=== PATIENT | female | born 1955 | race Caucasian/White ===

== ENCOUNTER 2016-08-16 17:14 | Emergency (ER) | payer OTHER ==
[~2016-08-16] VITALS: Ht 160 cm; Wt 67.0 kg
[~2016-08-16 17:14] MED LIST: ACET500C5 PO; ALBU8.5H3 INH; BACTDS PO; DIPH25CA6 PO; FLUC150T17 PO; IBUP400T22 PO; PRED50TA PO; SULF-182 PO
[2016-08-16 17:19] VITALS: Ht 160 cm; Wt 67.0 kg
[2016-08-16 20:45] LABS: URINE BLOOD (Dip) POC Negative (NEGATIVE)
[2016-08-16] MEDS ORDERED: ATOR10TA65 PO (20:50)
[2016-08-16] MEDS ORDERED: NOVMIX SC (20:50)
[2016-08-16] MEDS ORDERED: OMEP20CA16 PO (20:51)
[2016-08-16] MEDS ORDERED: MTF1000T PO (20:51)
[2016-08-16] MEDS ORDERED: SOD CHLORIDE 0.9% 1,000 ML IV STA (21:14)
[2016-08-16] MEDS ORDERED: morphine 4 MG/ML VIAL IV STA (21:14)
[2016-08-16] MEDS ORDERED: ONDANSETRON 4 MG INJ IV STA (21:14)
[2016-08-16 21:26] LABS: ADD SCAN DIFF NO
[2016-08-16 21:29] LABS: BASOPHILS % 0.4 % (0.0-2.0); EOSINOPHILS # 0.1 10^3/ul (0.0-0.5); EOSINOPHILS % 0.6 % (0.0-7.0); HEMATOCRIT 43.7 % (37.0-47.0); LYMPHOCYTES # 1.2 10^3/ul (0.8-2.9); LYMPHOCYTES % 14.6 % (15.0-51.0); MEAN CORPUSCULAR HEMOGLOBIN 30.4 pg (29.0-33.0); MEAN CORPUSCULAR HGB CONC 34.3 g/dl (32.0-37.0); MEAN CORPUSCULAR VOLUME 88.5 fl (82.0-101.0); MEAN PLATELET VOLUME 10.5 fl (7.4-10.4); MONOCYTE # 0.6 10^3/ul (0.3-0.9); MONOCYTES % 7.6 % (0.0-11.0); NEUTROPHIL # 6.3 10^3/ul (1.6-7.5); NEUTROPHILS % 76.4 % (39.0-77.0); PLATELET COUNT 208 10^3/UL (140-415); RED BLOOD COUNT 4.94 10^6/ul (4.20-5.40); RED CELL DISTRIBUTION WIDTH 12.7 % (11.5-14.5); WHITE BLOOD COUNT 8.3 10^3/ul (4.8-10.8)
[2016-08-16 22:00] LABS: ALBUMIN 4.4 g/dl (3.3-4.9); ALBUMIN/GLOBULIN RATIO 1.29; BILIRUBIN,INDIRECT 0.7 mg/dl (0-1.1); BILIRUBIN,TOTAL 0.7 mg/dl (0.2-1.3); CALCIUM 8.5 mg/dl (8.4-10.2); CREATININE 0.52 mg/dl (0.44-1.00); POTASSIUM 3.6 mmol/L (3.5-5.1); TOTAL PROTEIN 7.8 g/dl (6.1-8.1)
[2016-08-16] MEDS ORDERED: IOHEXOL 300MG/ML 150 ML BTL ONE (22:57)
[2016-08-16] MEDS ORDERED: SOD CHLORIDE 0.9% 100 ML ONE (22:57)
[2016-08-16 23:42] VITALS: BP 126/66; PULSE 97; RESP 18; TEMP 99.4
--- NOTE | 2016-08-17 00:03 | ERD ---
ER Documentation Chief Complaint Date/Time DATE: 08/16/16 TIME: 21:03 Chief Complaint abd pain with vomiting /diarrhea since last night HPI 61-year-old female with history of hyperlipidemia and diabetes mellitus type 2 presents the ED complaining of a one-week history of worsening, moderate to severe, generalized, nonradiating crampy abdominal pain with nausea, several episodes of nonbloody, nonbilious emesis and one episode of nonbloody, non- mucoid diarrhea. No hematemesis, hematochezia or melanotic stools. Denies recent travel, spelled food exposure or ill contacts. No dysuria, polyuria, hematuria or flank pain. No chest pain or palpitations. No shortness of breath or cough. Complaining of mild, crampy pain to both upper and lower extremities which she has had intermittently for several months. No skin changes or rash. Denies headache or neck pain. No visual changes, focal weakness or numbness. No fevers or chills. ROS All systems reviewed and are negative except as per history of present illness. Medications Home Meds Active Scripts Pantoprazole* (Protonix*) 40 Mg Tablet., 40 MG PO DAILY, #20 TAB Prov:BEST CURRAN MD 08/17/16 Tramadol HCl (Tramadol HCl) 50 Mg Tablet, 50 MG PO Q6 Y for PAIN, #12 TAB Prov:BEST CURRAN MD 08/17/16 Reported Medications Metformin* (Glucophage*) 1,000 Mg Tablet, 1000 MG PO WITH BREAKFAST DINNE, #60 TAB 08/16/16 Omeprazole* (Omeprazole*) 20 Mg Capsule., 20 MG PO DAILY, #30 CAP 08/16/16 Atorvastatin Calcium (Atorvastatin Calcium) 10 Mg Tablet, 10 MG PO QHS, #30 TAB 08/16/16 Insulin Aspart (Novolog Mix (70/30)) 100 Units/Ml Soln, 30 SC WITH BREAKFAST DINNE, EA 08/16/16 Discontinued Scripts Prednisone* (Prednisone*) 50 Mg Tablet, 50 MG PO DAILY, #5 TAB Prov:ORVILLE BAILEY PA-C 02/03/16 Acetaminophen* (Tylophen*) 500 Mg Capsule, 1 CAP PO Q6H Y for PAIN AND OR ELEVATED TEMP, #20 CAP Prov:ORVILLE BAILEY-[place] 02/03/16 Albuterol Sulfate* (Proair HFA*) 8.5 Gm Hfa.aer.ad, 2 PUFF INH Q4, #1 INHALER Prov:LYNNORVILLE PA-C 02/03/16 Sulfamethoxazole-Trimethoprim* (Bactrim* DS) 800-160 Mg Tab, 1 TAB PO BID for 10 Days, TAB Prov:RAS DIAZ PA-C 12/29/14 Fluconazole* (Diflucan*) 150 Mg Tablet, 150 MG PO ONCE, #1 TAB Prov:RAS DIAZ PA-C 12/29/14 Ibuprofen* (Ibuprofen*) 400 Mg Tablet, 400 MG PO Q6H Y for PAIN AND OR ELEVATED TEMP, #30 Prov:MARY SCHNEIDER NP 09/17/14 Diphenhydramine Hcl* (Diphenhydramine Hcl*) 25 Mg Capsule, 25 MG PO Q6 Y for ITCHING, #30 TAB Prov:MARY SCHNEIDER NP 09/17/14 Sulfamethoxazole-Trimethoprim* (Sulfamethoxazole-Trimethoprim* DS) 800-160 Mg Tablet, 1 TAB PO BID for 5 Days, TAB Prov:MARY SCHNEIDER NP 09/17/14 Allergies Allergies: Coded Allergies: No Known Allergy (Unverified , 08/16/16) PMhx/Soc Reviewed in chart. As per HPI. History of Surgery: Yes (Cholecystectomy) Anesthesia Reaction: No Hx Neurological Disorder: No Hx Respiratory Disorders: Yes (ASTHMA) Hx Cardiac Disorders: Yes (HIGH CHOLESTEROL) Hx Psychiatric Problems: No Hx Alcohol Use: No Hx Substance Use: No Hx Tobacco Use: No Smoking Status: Never smoker FmHx Sister: Breast cancer. No coronary artery disease or stroke. Physical Exam Vitals Vital Signs Date Time Temp Pulse Resp B/P Pulse Ox O2 Delivery O2 Flow Rate FiO2 08/16/16 23:42 99.4 97 18 126/66 96 Room Air 08/16/16 21:13 100.0 105 18 110/57 92 Room Air 08/16/16 17:19 99.2 116 18 116/66 98 Physical Exam Const: Alert, moderate distress due to pain Head: Atraumatic Eyes: Normal Conjunctiva ENT: Normal External Ears, Nose and Mouth. Neck: Full range of motion. Nontender. No JVD. Resp: Breath sounds are equal and clear to auscultation bilaterally. No rales rhonchi or wheezes. Cardio: Regular rate and rhythm, no murmurs Abd: Soft, nondistended, obese. Mild epigastric tenderness but no rebound or guarding. No masses or abnormal pulsations. Skin: No petechiae or rashes Back: No midline or flank tenderness Ext: No cyanosis, or edema Neur: Awake and alert. No focal deficit observed. Psych: Anxious Result Diagram: 08/16/16205408/16/162054 Results 24 hrs Laboratory Tests Test 08/16/16 20:46 08/16/16 20:55 Bedside Urine pH (LAB) 6.5 Bedside Urine Protein (LAB) Negative Bedside Urine Glucose (UA) 0.50% Bedside Urine Ketones (LAB) Negative Bedside Urine Blood Negative Bedside Urine Nitrite (LAB) Negative Bedside Urine Leukocyte Esterase (L Negative White Blood Count 8.310^3/ul Red Blood Count 4.9410^6/ul Hemoglobin 15.0g/dl Hematocrit 43.7% Mean Corpuscular Volume 88.5fl Mean Corpuscular Hemoglobin 30.4pg Mean Corpuscular Hemoglobin Concent 34.3g/dl Red Cell Distribution Width 12.7% Platelet Count 60228^3/UL Mean Platelet Volume 10.5fl Neutrophils % 76.4% Lymphocytes % 14.6% Monocytes % 7.6% Eosinophils % 0.6% Basophils % 0.4% Nucleated Red Blood Cells % 0.0/100WBC Neutrophils # 6.310^3/ul Lymphocytes # 1.210^3/ul Monocytes # 0.610^3/ul Eosinophils # 0.110^3/ul Basophils # 0.010^3/ul Nucleated Red Blood Cells # 0.010^3/ul Sodium Level 134mmol/L Potassium Level 3.6mmol/L Chloride Level 101mmol/L Carbon Dioxide Level 24mmol/L Anion Gap 13 Blood Urea Nitrogen 13mg/dl Creatinine 0.52mg/dl Glucose Level 227mg/dl Calcium Level 8.5mg/dl Total Bilirubin 0.7mg/dl Direct Bilirubin 0.00mg/dl Indirect Bilirubin 0.7mg/dl Aspartate Amino Transf (AST/SGOT) 28IU/L Alanine Aminotransferase (ALT/SGPT) 34IU/L Alkaline Phosphatase 113IU/L Total Protein 7.8g/dl Albumin 4.4g/dl Globulin 3.40g/dl Albumin/Globulin Ratio 1.29 Lipase 102U/L Current Medications Medications (Trade) Dose Ordered Sig/Daquan Route PRN Reason Start Time Stop Time Status Last Admin Dose Admin Sodium Chloride (NS) 1,000 ml @ 1,000 mls/hr Q1H STAT IV 08/16/16 21:14 08/16/16 22:13 DC 08/16/16 21:25 Morphine Sulfate (morphine) 4 mg ONCE STAT IV 08/16/16 21:14 08/16/16 21:16 DC 08/16/16 21:25 Ondansetron HCl (Zofran Inj) 4 mg ONCE STAT IV 08/16/16 21:14 08/16/16 21:16 DC 08/16/16 21:25 IV Flush 10 ml 10 ml STK-MED ONCE .ROUTE 08/16/16 22:57 08/16/16 22:58 DC 08/16/16 23:06 Sodium Chloride (NS) 100 ml @ ud STK-MED ONCE .ROUTE 08/16/16 22:57 08/16/16 22:58 DC 08/16/16 23:06 Iohexol (Omnipaque 300mg/ ml) 150 ml STK-MED ONCE .ROUTE 08/16/16 22:57 08/16/16 22:58 DC 08/16/16 23:06 PROCEDURE: CT Abdomen and Pelvis with contrast. CLINICAL INDICATION: Abdominal pain. TECHNIQUE: A CT scan of the abdomen and pelvis was performed with intravenous contrast. The patient was scanned following the uncomplicated intravenous administration of 100 cc of Omnipaque-300. Coronal and sagittal reformatted images were obtained from the axial source images. Images were reviewed on a high-resolution PACS workstation. CTDIvol: 8.20 mGy. DLP: 472.03 mGy-cm. One or more of the following dose reduction techniques were used: - Automated exposure control. - Adjustment of the mA and/or kV according to patient size. - Use of iterative reconstruction technique. COMPARISON: None. FINDINGS: There is mild to moderate atelectasis at the lung bases. The heart is enlarged. The liver is unremarkable. The patient is status post cholecystectomy. The common bile duct is not dilated. The spleen is not enlarged. No pancreatic lesion is identified and there is no pancreatic ductal dilatation. The adrenal glands are unremarkable. The kidneys are normal in size. There is no perinephric fat stranding. No hydronephrosis is seen. The small and large bowel are normal in caliber. There is no bowel wall thickening. The appendix is not identified. The urinary bladder is unremarkable. The pelvic organs are within normal limits. No lymphadenopathy is identified. There is no ascites. No pneumoperitoneum is seen. There are minimal arterial calcifications. No suspicious osseous lesion is idenitified. IMPRESSION: 1. No inflammation, mass, or lymphadenopathy. 2. The appendix is not identified. 3. Status post cholecystectomy. 4. Cardiomegaly. RPTAT: HTAR .Zachary Gonzalez MD, MD Date Time Electronically viewed and signed by .Zachary Gonzalez MD, on 08/17/2016 00:20 .R/ Procedures/MDM DOCUMENTS REVIEWED: ED nurse, prior ED. ED COURSE: Normal saline 1 L. Morphine 4 mg and Zofran 4 mg IV. Protonix 40 mg IV. REEXAMINATION/REEVALUATION: Time: 23:55. Doing well. Pain decreased. Abdomen soft nontender. MEDICAL DECISION MAKIN-year-old female with history of hyperlipidemia and diabetes mellitus type 2 status post remote cholecystectomy presents the ED complaining of abdominal pain and body pain. Abdominal exam is benign without rebound, guarding or signs of peritonitis. Broad differential is considered including but not limited to gastritis/GERD, diabetic gastroparesis, appendicitis, bowel obstruction, diverticulitis, obstructive uropathy, abdominal aortic aneurysm, neoplasm and mesenteric ischemia. CT scan of the abdomen and pelvis unremarkable for an acute intra-abdominal process. Abdominal exam is benign without rebound, guarding or other signs of peritonitis. We will consider the patient has no chest pain and cardiac etiology, aortic dissection and pulmonary embolism are unlikely. Extremity pain possibly secondary to diabetic neuropathy without signs of an acute process. Imaging is not indicated. Pain resolved with intravenous hydration and analgesics. In the absence of signs of serious disease symptomatic treatment and outpatient follow-up is indicated. Stable for discharge with precautionary instructions and outpatient follow-up as counseled. Patient understands that the etiology of her symptoms is not definitively established outpatient follow-up is mandatory. Counseled [patient and family] regarding diagnostic workup, diagnosis and need for followup. Understands to return to ED if symptoms recur, worsen or any other concerns. Departure Diagnosis: Primary Impression: Abdominal pain of unknown etiology Additional Impressions: Hyperglycemia due to type 2 diabetes mellitus Diabetes mellitus truck terminal manager insulin use: without truck terminal manager use Qualified Code : E11.65 - Type 2 diabetes mellitus with hyperglycemia, without long-term current use of insulin Status post cholecystectomy Condition: Stable (Improved) BEST CURRAN MD August 17, 2016 00:03
--- NOTE | 2016-08-17 00:20 | RADRPT ---
PROCEDURE: CT Abdomen and Pelvis with contrast. CLINICAL INDICATION: Abdominal pain. TECHNIQUE: A CT scan of the abdomen and pelvis was performed with intravenous contrast. The patie nt was scanned following the uncomplicated intravenous administration of 100 cc of Omnipaque-300. C oronal and sagittal reformatted images were obtained from the axial source images. Images were revie wed on a high-resolution PACS workstation. CTDIvol: 8.20 mGy. DLP: 472.03 mGy-cm. One or more of the following dose reduction techniques were used: - Automated exposure control. - Adjustment of the mA and/or kV according to patient size. - Use of iterative reconstruction technique. COMPARISON: None. FINDINGS: There is mild to moderate atelectasis at the lung bases. The heart is enlarged. The liver is unremarkable. The patient is status post cholecystectomy. The common bile duct is not dilated. The spleen is not enlarged. No pancreatic lesion is identified and there is no pancreatic d uctal dilatation. The adrenal glands are unremarkable. The kidneys are normal in size. There is no perinephric fat stranding. No hydronephrosis is seen. The small and large bowel are normal in caliber. There is no bowel wall thickening. The appendix is not identified. The urinary bladder is unremarkable. The pelvic organs are within normal limits. No lymphadenopathy is identified. There is no ascites. No pneumoperitoneum is seen. There are minima l arterial calcifications. No suspicious osseous lesion is idenitified. IMPRESSION: 1. No inflammation, mass, or lymphadenopathy. 2. The appendix is not identified. 3. Status post cholecystectomy. 4. Cardiomegaly. RPTAT: HTAR .Zachary Gonzalez MD, Date Time Electronically viewed and signed by .Zachary Gonzalez MD, on 08/17/2016 00:20 .R/
[2016-08-17] MEDS ORDERED: TRAM50TA2 PO (00:25)
[2016-08-17] MEDS ORDERED: PANT40TA3 PO (00:25)
== END 2016-08-17 00:33 | disposition home or self-care (01) ==
LOC: E/R 17:14
DX: R10.84 Generalized abdominal pain (principal); E11.65 Type 2 diabetes mellitus with hyperglycemia; J45.909 Unspecified asthma, uncomplicated; R11.2 Nausea with vomiting, unspecified; Z79.4 Long term (current) use of insulin; Z79.84 Long term (current) use of oral hypoglycemic drugs; Z90.49 Acquired absence of other specified parts of digestive tract
CPT/HCPCS: 36415; 74177; 80053; 81003; 83690; 85025; 96374; 96375; J2270; J2405; J7030; Q9967; Z7502; Z7610

== ENCOUNTER 2018-01-21 13:05 | Emergency (ER) | END 2018-01-21 22:30 | disposition home or self-care (01) ==

== ENCOUNTER 2018-06-07 21:04 | Emergency (ER) | payer MEDICAID, MEDICARE ==
[~2018-06-07] VITALS: Ht 152.4 cm; Wt 66.9 kg
[~2018-06-07 21:04] MED LIST changes: -ACET500C5 PO; -ALBU8.5H3 INH; -BACTDS PO; +CHOLESTEROL PO; +DIPH1TAB PO; -DIPH25CA6 PO; -FLUC150T17 PO; -IBUP400T22 PO; +METF100010 PO; +NOVMIX SC; +OMEP20CA16 PO; -PRED50TA PO; -SULF-182 PO
[2018-06-07 21:44] VITALS: Ht 152.4 cm; Wt 66.9 kg
--- NOTE | 2018-06-08 04:34 | ERD ---
ER Documentation Chief Complaint Chief Complaint cough x 1 week HPI This is a 63-year-old female presents emergency department with complaints of cough for about a week. Denies headache, head injury, loss of consciousness, dizziness, neck pain, neck stiffness, throat pain, difficulty swallowing, difficulty breathing lying flat, shoulder pain, chest pain, back pain, abdominal pain, nausea, vomiting, constipation, diarrhea, urinary symptoms, or possibility being , loss of bowel and bladder control, trauma, injury, falls, difficulty walking due to pain, numbness or tingling sensation, calf pain, recent travel, recent major surgery in the last 3 weeks, calf pain, recent long travel, recent exposure to any illness, recent antibiotic use in the last 3 months, fever, chills, seizures. ROS All systems reviewed and are negative except as per history of present illness. Medications Home Meds Active Scripts Albuterol Sulfate* (Proair HFA*) 8.5 Gm Hfa.aer.ad, 2 PUFF INH Q4 PRN for WHEEZING, #1 INHALER Prov:AUSTIN CARD 06/08/18 Prednisone* (Prednisone*) 20 Mg Tab, 40 MG PO DAILY for 3 Days, TAB Prov:POLINAILAAUSTIN ALEJO 06/08/18 Benzonatate* (Tessalon Perle*) 100 Mg Capsule, 100 MG PO Q8H PRN for COUGH, #15 CAP Prov:PASAUSTIN GONZALEZ 06/08/18 Acetaminophen* (Tylophen*) 500 Mg Capsule, 1 CAP PO Q6H PRN for PAIN AND OR ELEVATED TEMP, #20 CAP Prov:AUSTNI CARD 06/08/18 Azithromycin* (Zithromax*) 250 Mg Tablet, 250 MG PO .ZPACK DIRECTED, #6 TAB TAKE 500 MG (2 TABS) THE FIRST DAY THEN 250 MG (1 TAB) DAYS 2-5 Prov:AUSTIN CARD 06/08/18 Amoxicillin/Potassium Clav (Amox-Clav 875-125 mg Tablet) 875-125 mg Tab, 1 TAB PO BID for 10 Days, #20 TAB Prov:AUSTIN CARD 06/08/18 Diphenoxylate HCl/Atropine (Lomotil 2.5-0.025 mg Tablet) 1 Each Tablet, 1 TAB PO QID PRN for DIARRHEA, #10 TAB Prov:EKMEKJIAN,NELLIE R. MD 01/21/18 Reported Medications [Cholesterol] No Conflict Check, 1 TAB PO DAILY 01/21/18 Omeprazole* (Omeprazole*) 20 Mg Capsule.dr, 20 MG PO DAILY, #30 CAP 01/21/18 Metformin Hcl* (Metformin Hcl*) 1,000 Mg Tablet, 1000 MG PO WITH BREAKFAST DINNE, #60 TAB 01/21/18 Insulin Aspart (Novolog Mix (70/30)) 100 Units/Ml Soln, 60 SC WITH DINNER, EA 01/21/18 Insulin Aspart (Novolog Mix (70/30)) 100 Units/Ml Soln, 40 SC WITH BREAKFAST, VIAL 01/21/18 Allergies Allergies: Coded Allergies: No Known Allergy (Unverified , 01/21/18) PMhx/Soc History of Surgery: Yes (Cholecystectomy) Anesthesia Reaction: No Hx Neurological Disorder: No Hx Respiratory Disorders: Yes (ASTHMA) Hx Cardiac Disorders: Yes (HIGH CHOLESTEROL, HTN) Hx Psychiatric Problems: No Hx Miscellaneous Medical Probl: Yes (DM, FRACTURED RIGHT GREAT TOE) Hx Alcohol Use: No Hx Substance Use: No Hx Tobacco Use: No Physical Exam Vitals Vital Signs Date Temp Pulse Resp B/P (MAP) Pulse Ox O2 O2 Flow FiO2 Time Delivery Rate 06/08/18 98.3 85 18 138/67 96 Room Air 05:15 (90) 06/07/18 99.0 88 18 174/72 96 21:44 (106) Physical Exam Const: No acute distress Head: Atraumatic Eyes: Normal Conjunctiva ENT: Normal External Ears, Nose and Mouth. Bilateral ears: TMs are mildly erythematous. No bleeding. No discharge. No hearing loss. No mastoid tenderness. Nose: There is frontal and maxillary sinus tenderness palpation. Throat: Uvula is in midline and nondisplaced. Tonsils are +2 bilaterally with redness but no exudates. Tolerating secretions. Patent airway. No tripoding. Speaks full and clear sentences. Neck: Full range of motion. No meningismus. No nuchal rigidity but no signs of meningeal irritation. Resp: Clear to auscultation bilaterally. No accessory muscle use in breathing. Cardio: Regular rate and rhythm, no murmurs Abd: Soft, non tender, non distended. Normal bowel sounds Skin: No petechiae or rashes Back: No midline or flank tenderness Ext: No cyanosis, or edema Neur: Awake and alert. No neurological deficits. Psych: Normal Mood and Affect Procedures/MDM Diagnostic tests: Clinical exam. Treatment: Not applicable. Re-evaluation: Not applicable. Differential diagnosis I have low suspicion for sepsis, mastoiditis, peritonsillar abscess, meningitis, airway obstruction, bronchospasm. Final diagnosis: Bronchitis. Sinusitis. Prescription: Azithromycin. Augmentin. Tylenol. Prednisone. Pro-air. Tessalon Perles. Follow-up with PCP in the next 24-48 hours. Come back here in the emergency department for any new symptoms or any worsening symptoms. All questions and concerns were answered. Patient and family members verbalized understanding and agreed with plan of care. Hemodynamically stable on discharge. Departure Diagnosis: Primary Impression: Bronchitis Additional Impression: Sinusitis Condition: Stable Additional Instructions: Follow-up with PCP in the next 24-48 hours. Come back here in the emergency department for any new symptoms or any worsening symptoms. AUSTIN CARD Jun 08, 2018 04:34
[2018-06-08] MEDS ORDERED: AMOX1TAB10 PO (04:35)
[2018-06-08] MEDS ORDERED: BENZ-6 PO (04:35)
[2018-06-08] MEDS ORDERED: ACET500C5 PO (04:35)
[2018-06-08] MEDS ORDERED: AZIT250T PO (04:35)
[2018-06-08] MEDS ORDERED: PRED20TA PO (04:36)
[2018-06-08] MEDS ORDERED: ALBU8.5H8 INH (04:47)
[2018-06-08 05:15] VITALS: BP 138/67; PULSE 85; RESP 18
== END 2018-06-08 05:24 | disposition home or self-care (01) ==
LOC: FTE 21:04
DX: J40 Bronchitis, not specified as acute or chronic (principal); E11.9 Type 2 diabetes mellitus without complications; I10 Essential (primary) hypertension; J32.9 Chronic sinusitis, unspecified; Z79.4 Long term (current) use of insulin
CPT/HCPCS: 99283